=== PATIENT | female | born 1950 | race Caucasian/White ===

== ENCOUNTER 2020-10-06 20:53 | Emergency (ER) | payer MEDICARE ==
[~2020-10-06] VITALS: Ht 170.2 cm; Wt 75.8 kg
[~2020-10-06 20:53] MED LIST: ASPIRIN EC325 M1 PO; ASPIRIN EC325 MG PO; ASPIRIN EC81 M1 PO; ASPIRIN81 M2 PO; BACTRIM DS TAB1 EAC1 PO; CHANTIX1 MG PO; CIPRO250 M2 PO; CIPRO500 MG PO; COLACE100 MG PO; DETROL1 MG PO; DYNACIN100 MG PO; FIBERCON625 M1 PO; FLEXERIL PO; FOLIC ACID 40400 MCG PO; GLIPIZIDE ER2.5 MG PO; GLYBURIDE 2.52.5 MG PO; KEFLEX500 MG PO; LEVAQUIN 500 M500 M2 PO; LISINOPRIL2.5 MG PO; LISINOPRIL5 MG PO; MIRALAX17 GM PO; MYRBETRIQ25 MG PO; NICODERM CQ1 EAC1 TRANSDERM; NICOTINE PATCH1 EAC1 TRANSDERM; NORCO 5-325 TA1 EACH PO; PRAVASTATIN SOD20 MG PO; PRAVASTATIN SOD40 MG PO; PROZAC20 MG PO; PROZAC40 MG PO; ROXICODONE15 M1 PO; TAMSULOSIN HCL0.4 MG PO; TYLENOL325 MG PO; VICODIN 5-3001 EACH PO; VITAMIN D35000 UNI1 PO
[2020-10-06 21:52] LABS: HEMOGLOBIN 13.4 gm/dL (12.0-15.0); MCH 28.2 pg (26.0-34.0); MCHC 33.6 g/dL (28.0-37.0); MCV 84.1 fL (80.0-100.0); MPV 8.5 fl. (7.2-11.1); RBC 4.76 mil/uL (4.20-5.00); RDW-CV 15.2 % (10.5-14.5); WBC 10.7 thou/uL (4.0-11.0)
[2020-10-06 22:08] LABS: CALCIUM 9.2 mg/dL (8.5-10.1); CREATININE 1.6 mg/dL (0.6-1.3); POTASSIUM 4.5 mmol/L (3.5-5.1)
[2020-10-06 22:12] LABS: ALBUMIN 3.6 g/dL (3.4-5.0); TOTAL BILIRUBIN 0.2 mg/dL (<0.1-1.0); TOTAL PROTEIN 7.8 g/dL (6.4-8.2)
[2020-10-06 22:28] LABS: URINE BILIRUBIN NEGATIVE (Negative); URINE BLOOD NEGATIVE (Negative); URINE CLARITY CLEAR; URINE COLOR YELLOW; URINE GLUCOSE-RANDOM 1+ (Negative); URINE KETONES NEGATIVE (Negative); URINE LEUKOCYTES-REFLEX TRACE (Negative); URINE NITRITE-REFLEX NEGATIVE (Negative); URINE PROTEIN TRACE (Negative); URINE UROBILINOGEN 0.2 E.U./dl (0.2-1.0)
[2020-10-06] MEDS ORDERED: ZOFRAN ODT4 MG PO (22:38)
[2020-10-06] MEDS ORDERED: PERCOCET 5-3251 EACH PO (22:38)
[2020-10-06 22:41] LABS: BACTERIA-REFLEX >30 Many /HPF (None Seen); CASTS None Seen /LPF (None Seen); CRYSTALS None Seen /LPF (None Seen); MUCUS 4-6 Moderate strn/LPF (None Seen); SQUAMOUS 4-10 Moderate /LPF (0-3); URINE RBC 3-10 Few /HPF (0-2); WBC CLUMPS Few (None Seen)
[2020-10-06 23:25] VITALS: BP 126/73
== END 2020-10-06 23:25 | disposition home or self-care (01) ==
LOC: M.ERS 20:53
PROVIDERS: Personal Emergency Response Attendant
DX: S42.352A Displaced comminuted fracture of shaft of humerus, left arm, initial encounter for closed fracture (principal); I25.10 Atherosclerotic heart disease of native coronary artery without angina pectoris; E11.9 Type 2 diabetes mellitus without complications; I25.2 Old myocardial infarction; J44.9 Chronic obstructive pulmonary disease, unspecified; G89.29 Other chronic pain; Z86.73 Personal history of transient ischemic attack (TIA), and cerebral infarction without residual deficits; Z88.6 Allergy status to analgesic agent; Z88.0 Allergy status to penicillin; Z88.5 Allergy status to narcotic agent; Z88.8 Allergy status to other drugs, medicaments and biological substances; W10.9XXA Fall (on) (from) unspecified stairs and steps, initial encounter; Y93.89 Activity, other specified; Y92.89 Other specified places as the place of occurrence of the external cause; Y99.8 Other external cause status